=== PATIENT | male | born 2000 | race Caucasian/White ===

== ENCOUNTER 2023-12-03 04:16 | Emergency (ER) | payer OTHER ==
[~2023-12-03] VITALS: Ht 180.3 cm; Wt 79.4 kg
[2023-12-03 04:24] VITALS: BP_SYST 124; PULSE 99; RESP 18; TEMP 97.7; O2SAT 99
[2023-12-03] MEDS ORDERED: NAPR-1172 PO (04:28)
[2023-12-03] MEDS ORDERED: AUG875 PO (04:28)
[2023-12-03 04:31] VITALS: BP_SYST 124; PULSE 99; RESP 18; TEMP 97.7; O2SAT 99
== END 2023-12-03 04:31 | disposition home or self-care (01) ==
LOC: SED 04:16
DX: H66.93 Otitis media, unspecified, bilateral (principal); Z79.899 Other long term (current) drug therapy; Z79.2 Long term (current) use of antibiotics
CPT/HCPCS: 99283